=== PATIENT | male | born 1960 | race Caucasian/White ===

== ENCOUNTER 2018-01-08 04:05 | Emergency (ER) | payer BC ==
[~2018-01-08] VITALS: Ht 162.6 cm; Wt 82.0 kg
[2018-01-08] MEDS ORDERED: MAGNESIUM/ALUMINUM HYDROXIDE/SIMETHICONE 30ML UDC PO STA (06:24)
[2018-01-08 07:12] LABS: BASOPHILS % 0.7 % (0.0-2.0); EOSINOPHILS % 2.4 % (0.0-5.0); HEMATOCRIT. 42.7 % (42.0-52.0); HEMOGLOBIN. 14.5 g/dL (14.0-18.0); MEAN CORPUSCULAR HEMOGLOBIN 30.2 pg (28.0-32.0); MEAN CORPUSCULAR VOLUME 88.9 fL (80.0-94.0); MONOCYTES % 10.3 % (2.0-8.0); NEUTROPHILS % 65.6 % (40.0-76.0); PLATELET 228 x1000/uL (130-400); RED CELL DISTRIBUTION WIDTH 13.5 % (11.6-14.6)
[2018-01-08 07:13] LABS: CLARITY URINE CLEAR (CLEAR); COLOR URINE YELLOW (YELLOW); KETONES URINE NEGATIVE (NEGATIVE); LEUKOCYTE ESTERASE URINE NEGATIVE (NEGATIVE); NITRITE URINE NEGATIVE (NEGATIVE); OCCULT BLOOD URINE NEGATIVE (NEGATIVE); PROTEIN URINE NEGATIVE (NEGATIVE); SPECIFIC GRAVITY URINE 1.014 (1.005-1.030); UROBILINOGEN URINE 0.2 E.U./dL (0.2-1.0)
[2018-01-08 07:17] LABS: CHLORIDE 102 mEq/L (98-107)
[2018-01-08 08:25] VITALS: BP 156/86
== END 2018-01-08 08:27 | disposition home or self-care (01) ==
LOC: ER 04:05
DX: R10.13 Epigastric pain (principal); R03.0 Elevated blood-pressure reading, without diagnosis of hypertension
CPT/HCPCS: 36415; 71045; 80053; 81003; 83690; 84484; 85025; 93005; 99285; Z7610

== ENCOUNTER 2018-07-26 01:27 | Inpatient (IN) | payer BC ==
[~2018-07-26] VITALS: Ht 162.6 cm; Wt 81.6 kg
[2018-07-26 02:28] LABS: BASOPHILS % 0.8 % (0.0-2.0); HEMATOCRIT. 42.9 % (42.0-52.0); HEMOGLOBIN. 14.8 g/dL (14.0-18.0); LYMPHOCYTES % 23.4 % (20.0-50.0); MEAN CORPUSCULAR HEMOGLOBIN 30.8 pg (28.0-32.0); MEAN CORPUSCULAR VOLUME 89.2 fL (80.0-94.0); MEAN PLATELET VOLUME 9.3 fl (7.4-10.4); MONOCYTES % 13.3 % (2.0-8.0); NEUTROPHILS % 58.5 % (40.0-76.0); PLATELET 245 x1000/uL (130-400); RED BLOOD CELL COUNT 4.81 mill/uL (4.7-6.1); RED CELL DISTRIBUTION WIDTH 13.1 % (11.6-14.6)
[2018-07-26 02:31] LABS: CHLORIDE 107 mEq/L (98-107)
[2018-07-26] MEDS ORDERED: ASPIRIN 325MG TABLET PO ONE (04:45)
[2018-07-26 08:15] VITALS: BP 162/86
[2018-07-26 10:39] VITALS: BP 162/86
[2018-07-26] MEDS ORDERED: DOCUSATE SODIUM 100MG CAPSULE PO PRN (11:00)
[2018-07-26] MEDS ORDERED: LORAZEPAM 0.5MG TABLET PO PRN (11:00)
[2018-07-26] MEDS ORDERED: GUAIFENESIN 200MG/10ML SUGAR FREE UDC PO PRN (11:00)
[2018-07-26] MEDS ORDERED: NA PHOS,M-B/NA PHOS,DI-BA ENEMA 118ML PR PRN (11:00)
[2018-07-26] MEDS ORDERED: HYDROCODONE/ACETAMINOPHEN 5/325MG TABLET PO PRN (11:00)
[2018-07-26] MEDS ORDERED: ENOXAPARIN 40MG/0.4ML SYR SUBCUT SCH (11:00)
[2018-07-26] MEDS ORDERED: MAGNESIUM/ALUMINUM HYDROXIDE/SIMETHICONE 30ML UDC PO PRN (11:00)
[2018-07-26] MEDS ORDERED: CLONIDINE 0.1MG TABLET PO PRN (11:00)
[2018-07-26] MEDS ORDERED: ACETAMINOPHEN 650MG SUPP PR PRN (11:00)
[2018-07-26] MEDS ORDERED: DIPHENHYDRAMINE 50MG/ML VIAL IV PRN (11:00)
[2018-07-26] MEDS ORDERED: AMLODIPINE 5MG TABLET PO SCH ×2 (11:00→21:00)
[2018-07-26] MEDS ORDERED: ACETAMINOPHEN 325MG TABLET PO PRN (11:00)
[2018-07-26] MEDS ORDERED: ONDANSETRON HCL 4MG/2ML INJ IV PRN (11:00)
[2018-07-26] MEDS ORDERED: IPRATROPIUM/ALBUTEROL 0.5-3(2.5)MG/3ML NEB INH PRN (11:00)
[2018-07-26 12:00] VITALS: BP 159/89
[2018-07-26] MEDS ORDERED: MULTIVITAMINS,THER W-MINERALS TABLET PO SCH (12:30)
[2018-07-26] MEDS ORDERED: FOLIC ACID 1MG TABLET PO SCH (12:30)
[2018-07-26] MEDS ORDERED: THIAMINE HCL 100MG TABLET PO SCH (12:30)
[2018-07-26] MEDS ORDERED: AMLODIPINE 5MG TABLET PO ONE (12:30)
[2018-07-26 16:00] VITALS: BP 143/86
[2018-07-26 16:30] LABS: CLARITY URINE CLEAR (CLEAR); COLOR URINE YELLOW (YELLOW); KETONES URINE NEGATIVE (NEGATIVE); LEUKOCYTE ESTERASE URINE NEGATIVE (NEGATIVE); NITRITE URINE NEGATIVE (NEGATIVE); OCCULT BLOOD URINE NEGATIVE (NEGATIVE); PROTEIN URINE NEGATIVE (NEGATIVE); SPECIFIC GRAVITY URINE 1.007 (1.005-1.030); UROBILINOGEN URINE 0.2 E.U./dL (0.2-1.0)
[2018-07-26 16:51] LABS: *AMPHETAMINES SCREEN URINE NEGATIVE (NEGATIVE); *BARBITURATES SCREEN URINE NEGATIVE (NEGATIVE); *BENZODIAZEPINES SCREEN URINE NEGATIVE (NEGATIVE); *COCAINE SCREEN URINE NEGATIVE (NEGATIVE); CANNABINOID URINE SCREEN NEGATIVE (NEGATIVE); METHADONE URINE SCREEN NEGATIVE (NEGATIVE); OPIATES URINE SCREEN NEGATIVE (NEGATIVE); PHENCYCLIDINE URINE SCREEN NEGATIVE (NEGATIVE)
[2018-07-26 17:19] VITALS: BP 143/86
[2018-07-27] MEDS ORDERED: ASPIRIN 81MG EC TABLET PO SCH (09:00)
== END 2018-07-26 18:04 | disposition home or self-care (01) | DRG 69 ==
LOC: ER 02:08 → 8WST 05:20 → EDBEDREQTM 05:21 → EDBEDREQ 05:21 → ENRESERV 07:16
PROVIDERS: ADMIT Internal Medicine; ATTEND Internal Medicine
DX: G45.9 Transient cerebral ischemic attack, unspecified (principal); I16.0 Hypertensive urgency; E88.81 Metabolic syndrome and other insulin resistance; R73.9 Hyperglycemia, unspecified; E78.5 Hyperlipidemia, unspecified; E66.9 Obesity, unspecified; E78.00 Pure hypercholesterolemia, unspecified; F10.10 Alcohol abuse, uncomplicated; I10 Essential (primary) hypertension; K21.9 Gastro-esophageal reflux disease without esophagitis; Z91.19 Patient's noncompliance with other medical treatment and regimen; Z71.41 Alcohol abuse counseling and surveillance of alcoholic; Z71.3 Dietary counseling and surveillance; Z68.30 Body mass index [BMI] 30.0-30.9, adult
CPT/HCPCS: 36415; 71045; 80061; 80305; 83036; 84443; 84484; 93005; 93306; 93880; 93970; 96372; 99291; J1650